=== PATIENT | male | born 1985 | race Two or more races ===

== ENCOUNTER 2019-05-06 11:04 | Emergency (ER) | payer OTHER ==
[2019-05-06 11:12] VITALS: PULSE 82
[2019-05-06 11:14] VITALS: RESP 18
[2019-05-06] MEDS ORDERED: DIPH,PERTUS(ACELL)TETVAC-LF 0.5 ML VIAL IM ONE (11:24)
[2019-05-06] MEDS ORDERED: HYDROcodone/APAP 5-325MG 1 EACH TAB PO STA (11:25)
[2019-05-06] MEDS ORDERED: LIDOCAINE 1% INJ 10MG/ML (20 ML MDV) SQ ONE (11:25)
[2019-05-06 11:49] VITALS: BP 146/85; TEMP 97.2
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
== END 2019-05-06 12:30 | disposition home or self-care (01) ==
LOC: EC 11:04
DX: S01.511A Laceration without foreign body of lip, initial encounter (principal); Z23 Encounter for immunization; F17.200 Nicotine dependence, unspecified, uncomplicated; V89.2XXA Person injured in unspecified motor-vehicle accident, traffic, initial encounter; Y92.410 Unspecified street and highway as the place of occurrence of the external cause; Y99.0 Civilian activity done for income or pay
CPT/HCPCS: 70110; 90715; 90471; 99283; 12011; J2001

== ENCOUNTER → 2024-05-20 | Outpatient (CLI) | payer OTHER ==
--- NOTE | 2024-05-20 14:11 | MR ---
EXAMINATION TYPE: MR knee RT wo con DATE OF EXAM: 05/20/2024 6:25 AM COMPARISON: None. CLINICAL INDICATION: Male, 38 years old with history of S83.241A OTH TEAR OF MEDIAL MENISCUS, CURRENT INJU; PHH, Right knee pain, medial aspect x 4 mos. TECHNIQUE: Multi planar, multi sequence imaging was performed of the knee including: Triplane proton density fat-saturated images and T1-weighted imaging. No Gadolinium was given. IV Contrast: mL (none if empty) FINDINGS: Medial meniscus: Heterogenous signal within the posterior horn and body with multidirectional com plex tear best appreciated on series 701 image 12 there is a radial component horizontal component an d a vertical component present. Medial femorotibial cartilage: Grade-I chondromalacia. Medial collateral ligament: Intact Lateral meniscus: Intact, discoid meniscus present. Lateral femorotibial cartilage: Grade-I chondromalacia. Lateral collateral ligament complex: Intact Patellofemoral alignment: Normal Patellofemoral cartilage: Grade-I chondromalacia. Extensor mechanism: Intact. Joint/bursal fluid: None. Muscles/tendons: The patellar tendon, quadriceps tendon, IT band, pes anserinus tendons, semimembrano willow tendon, popliteus tendon, and biceps femoris tendon are all within normal limits. Bone marrow: Normal. Anterior cruciate ligament: Intact. Posterior cruciate ligament: Intact. Soft tissues: A fabella is present IMPRESSION: 1. Multidirectional medial meniscal body an posterior horn tear. 2. No definitive evidence to suggest ligamentous injury. 3. Lateral discoid meniscus. [facility], , 05/20/2024 2:09 PM
== END | disposition home or self-care (01) ==
LOC: RADMRIMAIN 05:57
PROVIDERS: ATTEND Orthopaedic Surgery
DX: S83.241A Other tear of medial meniscus, current injury, right knee, initial encounter (principal)

== ENCOUNTER → 2024-10-03 | Outpatient (CLI) | payer OTHER ==
[2024-10-03 13:24] LABS: Basophils # (A) 0.05 X 10*3/uL (0.00-0.10); Basophils % (A) 0.6 %; Eosinophils # (A) 0.13 X 10*3/uL (0.04-0.35); Eosinophils % (A) 1.6 %; HCT 48.2 % (39.6-50.0); HGB 15.4 g/dL (13.0-17.0); Immature Grans, Automated 0.40 %; Lymphocytes # (A) 2.76 X 10*3/uL (0.90-5.00); Lymphocytes % (A) 33.0 %; MCH 28.5 pg (27.0-32.0); MCHC 32.0 g/dL (32.0-37.0); MCV 89.3 FL (80.0-97.0); Monocytes # (A) 0.91 X 10*3/uL (0.20-1.00); Monocytes % (A) 10.9 %; NRBC Per 100 WBC 0 X 10*3/uL (0.00-0.01); Neutrophils # (A) 4.48 X 10*3/uL (1.80-7.70); Neutrophils % (A) 53.5 %; Platelet Count 193 X 10*3/uL (140-440); RBC 5.40 X 10*6/uL (4.40-5.60); RDW 12.0 % (11.5-14.5); WBC 8.36 X 10*3/uL (4.50-10.00)
[2024-10-03 13:44] LABS: ALT 29 U/L (10-49); AST 26 U/L (14-35); Albumin 4.5 g/dL (3.8-4.9); Albumin/Globulin Ratio 2.14 Ratio (1.60-3.17); Alkaline Phosphatase 75 U/L (41-126); Anion Gap 9.40 mmol/L (4.00-12.00); BUN/Creat Ratio 14.11 Ratio (12.00-20.00); Blood Urea Nitrogen 12.7 mg/dL (9.0-27.0); Calcium 9.3 mg/dL (8.7-10.3); Carbon Dioxide 24.6 mmol/L (21.6-31.8); Chloride 102 mmol/L (96-109); Cholesterol 167.00 mg/dL (0.00-200.00); Globulin 2.1 g/dL (1.6-3.3); Glucose 98 mg/dL (70-110); HDL Cholesterol 42.50 mg/dL (40.00-60.00); LDL Cholesterol,Calculated 109.3 mg/dL (0.0-131.0); Potassium 4.4 mmol/L (3.5-5.5); Sodium 136 mmol/L (135-145); Total Protein 6.6 g/dL (6.2-8.2); Triglycerides 75.90 mg/dL (0.00-149.00); VLDL Calculation 15.18 mg/dL (5.00-40.00)
== END | disposition home or self-care (01) ==
LOC: LABWHC1 08:19
PROVIDERS: ATTEND Family Medicine
DX: Z00.00 Encounter for general adult medical examination without abnormal findings (principal)
CPT/HCPCS: 36415; 80053; 80061; 84443; 85025